=== PATIENT | female | born 1970 | race Caucasian/White ===

== ENCOUNTER 2017-05-31 18:11 | Emergency (ER) | payer OTHER ==
[2017-05-31 18:16] VITALS: BP 156/98; PULSE 89; RESP 20; TEMP 98.2
[2017-05-31] MEDS ORDERED: DIPH,PERTUS(ACELL)TETVAC-LF 0.5 ML VIAL IM ONE (18:23)
[2017-05-31] MEDS ORDERED: GELATIN SPONGE,ABSORB (SMALL) 1 EACH SPONGE TOPICAL STA (18:23)
[2017-05-31] MEDS ORDERED: HYDROcodone/APAP 5-325MG 1 EACH TAB PO STA (18:24)
[2017-05-31] MEDS ORDERED: AMOXIC-POT CLAV 875MG STARTER 2 EACH TABLET PO STA (18:24)
--- NOTE | 2017-05-31 18:29 | ED ---
General Adult HPI - General Chief complaint: Animal Bite Stated complaint: laceration Time Seen by Provider: 05/31/17 18:16 Source: patient, RN notes reviewed Mode of arrival: ambulatory Limitations: no limitations - History of Present Illness Initial comments: 46-year-old female presents to the emergency Department chief complaint of dog bite to the right pinky finger. Patient was bitten by her friend's dog the dog is up-to-date on vaccinations. She does not recall her last tetanus. Patient states she's having throbbing to that finger. There is no other injury from the incident. Patient denies being bitten anywhere else. Patient denies any other symptoms at this time.Patient denies any recent fever, chills, shortness of breath, chest pain, back pain, abdominal pain, nausea vomiting, numbness or tingling, dysuria or hematuria, constipation or diarrhea, headaches or visual changes, or any other current symptoms. - Related Data Home Medications Medication Instructions Recorded Confirmed LORazepam [Ativan] 1 tab PO DAILY 05/31/17 05/31/17 Morphine Sulfate [Morphine Sulfate 1 tab PO DAILY 05/31/17 05/31/17 ER] Previous Rx's Medication Instructions Recorded Amoxicillin/Potassium Clav 1 tab PO Q12HR #20 tab 05/31/17 [Augmentin 875-125 Tablet] Hydrocodone/Acetaminophen [[place] 1 each PO Q6HR PRN #20 tab 05/31/17 5-325] Allergies Allergy/AdvReac Type Severity Reaction Status Date / Time No Known Allergies Allergy Verified 05/31/17 18:13 Review of Systems ROS Statement: Those systems with pertinent positive or pertinent negative responses have been documented in the HPI. ROS Other: All systems not noted in ROS Statement are negative. Past Medical History Past Medical History: Cancer History of Any Multi-Drug Resistant Organisms: None Reported Past Surgical History: No Surgical Hx Reported Past Psychological History: No Psychological Hx Reported Smoking Status: Never smoker Past Alcohol Use History: None Reported Past Drug Use History: None Reported General Exam - General Exam Comments Initial Comments: General: The patient is awake and alert, in no distress, and does not appear acutely ill. Neck: The neck is supple, there is no tenderness. Cardiovascular: There is a regular rate and rhythm. No murmur, rub or gallop is appreciated. Respiratory: Lungs are clear to auscultation, respirations are non-labored, breath sounds are equal. No wheezes, stridor, rales, or rhonchi. Musculoskeletal: Patient tachycardia 2+ pulses throughout the right upper extremity. Frontal motion of the right hand and all digits. Patient does appear to have a distal amputation to the distal phalanx that is about 10% of nail remaining. Neurological: CN II-XII intact, There are no obvious motor or sensory deficits. Coordination appears grossly intact. Speech is normal. Skin: Skin is warm and dry and no rashes or lesions are noted. Psychiatric: Normal mood and affect. Limitations: no limitations Course Vital Signs 05/31/17 18:14 Temperature 98.2 F Pulse Rate 89 Respiratory 20 Rate Blood Pressure 156/98 O2 Sat by Pulse 98 Oximetry Medical Decision Making - Medical Decision Making 46-year-old female presents for distal finger amputation due to dog bite. This and it was thoroughly cleaned. We did apply a Gelfoam dressing. He can follow- up to hand we discussed return for hours and all the patient's questions. She stated that she understood and she is very plan. All questions have been answered. She will be discharged home at this time. Disposition Clinical Impression: Dog bite of finger, Partial traumatic transphalangeal amputation of finger Disposition: HOME SELF-CARE Condition: Stable Instructions: Animal Bite (ED), Finger Amputation (ED) Additional Instructions: Please use medication as discussed. Please follow up with family doctor if symptoms have not improved over the next two days. Please return to the emergency room if your symptoms increase or worsen or for any other concerns. Prescriptions: Amoxicillin/Potassium Clav [Augmentin 875-125 Tablet] 1 tab PO Q12HR #20 tab Hydrocodone/Acetaminophen [[place] 5-325] 1 each PO Q6HR PRN #20 tab PRN Reason: Pain Referrals: Wil Alva DO [Doctor of Osteopathic Medicine] - 1-2 days Time of Disposition: 18:50
--- NOTE | 2017-05-31 18:40 | XR ---
EXAMINATION TYPE: XR finger RT DATE OF EXAM: 05/31/2017 COMPARISON: NONE HISTORY: Bit by dog TECHNIQUE: Frontal and lateral images of the fifth digit were obtained. FINDINGS: There is soft tissue and osseous truncation and absence of the distal tuft of the fifth dig it. Surrounding soft tissue swelling is noted. No radiopaque foreign body or subcutaneous emphysema. IMPRESSION: Truncation and absence of the distal fifth digit soft tissues and osseous distal phalanx tuft.
== END 2017-05-31 19:03 | disposition home or self-care (01) ==
LOC: EC 18:11
DX: S68.626A Partial traumatic transphalangeal amputation of right little finger, initial encounter (principal); R00.0 Tachycardia, unspecified; Z79.891 Long term (current) use of opiate analgesic; Z79.899 Other long term (current) drug therapy; Z23 Encounter for immunization; W54.0XXA Bitten by dog, initial encounter
CPT/HCPCS: 90471; 90715; 99283